=== PATIENT | male | born 1970 | race Caucasian/White ===

== ENCOUNTER → 2018-03-01 | Outpatient (CLI) | payer OTHER | LOC: M.ULTRA 07:55 | DX: R10.9 Unspecified abdominal pain (principal); R63.4 Abnormal weight loss; R19.4 Change in bowel habit ==

== ENCOUNTER → 2018-04-19 | Outpatient (CLI) | payer OTHER | LOC: M.CT 04-10 08:00 | DX: K36 Other appendicitis (principal); R63.0 Anorexia; R63.4 Abnormal weight loss ==

== ENCOUNTER → 2018-05-11 | Day surgery (SDC) | payer OTHER ==
[~2018-05-11] MED LIST: IBUPROFEN 200200 M1 PO; NORCO 5-325 TA1 EACH PO; OMEPRAZOLE40 MG PO
--- NOTE | ~2018-05-11 | OP ---
[address] [address] OPERATIVE REPORT Name: CHAPIS MUNOZ Room: [facility].R.#: [id number] Admission: 05/11/18 Attend Phys: Teresa Page DO Discharge: Date of : 74 Report #: [id number] THIS REPORT FOR: //name// CC: Teresa Diane DATE OF SERVICE: 05/11/2018 PREOPERATIVE DIAGNOSIS: Possible appendiceal mass. POSTOPERATIVE DIAGNOSIS: Possible appendiceal mass. SURGEON: Teresa Page DO. COSURGEON: Vu Boyd DO, PGY2. MANAGER OF [employer] SALES: Vishnu Vasquez DO, PGY3. OPERATION PERFORMED: Laparoscopic appendectomy. ANESTHESIA TYPE: General and local. ESTIMATED BLOOD LOSS: 10 mL. SPECIMEN REMOVED: Appendix. COMPLICATIONS: None. FINDINGS: An indurated thickened appendix, mainly at the tip and distal mid portion. INDICATIONS FOR PROCEDURE: The patient is a pleasant 47-year-old male who presented to the office after a CT scan in 04/19/2018, first showed signs of possible early acute appendicitis, but the patient did not have any other symptoms to suggest early or ongoing appendicitis, suspect likely possible underlying mass. The patient was subsequently booked for elective laparoscopic appendectomy. Full discussion of procedure, alternatives, risks and possible complications to include, but not limited to bleeding, infection, postoperative pain, scarring, hernia, injury to other abdominal organs mainly bladder or bowel, conversion to open procedure, need for further surgery especially in the setting of mass or malignancy on final pathology, staple line failure, stump appendicitis and anesthesia risks. The patient voiced understanding of these risks and agreed to proceed with surgery. OPERATIVE PROCEDURE: The patient was again seen and examined in the preop holding area. Fully informed written consent [place] [address] OPERATIVE REPORT Name: ALEXANDERCHAPIS ESPINALNE Room: [facility].#: [id number] Admission: 05/11/18 Attend Phys: Teresa Page DO Discharge: Date of : 74 Report #: [id number] of procedure, alternatives, risks and possible complications. The patient again voiced understanding and agreed to proceed with surgery. Preoperative antibiotics, 2 grams Ancef were given and the patient was transported to the operating room suite, placed on the operating room table in supine position. At this time, Anesthesia induced general endotracheal intubation and general anesthesia was successful. Bilateral lower extremity calves SCDs were placed. Grounding pad was placed to the left lateral thigh. All the patient's extremities and joints were padded and protected. Left arm was tucked. Right arm was on an arm board. Annamaria Hugger was used over the patient's chest. The patient was then prepped and draped using standard sterile fashion. Time-out was performed prior to the onset of procedure. We began by making a 12 mm incision inferior to the umbilicus using open Kareem technique, dissected down to the level of fascia using blunt electrocautery dissection. Bilateral Kochers were placed on the fascia. The fascia was elevated. This was transected using electrocautery. Next, using a hemostat, peritoneum was pierced and finger sweep was performed to verify entry into the abdomen, noting no adhesions. Next, a 2-0 Vicryl on a UR-6 stay sutures were placed on both sides of the fascia. This was elevated and a 12 mm Kareem trocar was placed into the abdomen. Next, the abdomen was insufflated first using low flow then high flow. A 0-degree 5 mm laparoscopic camera was placed into the abdomen. Abdomen was surveyed noting no injury upon entry into the abdomen. There were no other acute processes noted other than a few adhesions to the distal cecum. Next, a left lower quadrant 5 mm trocar was placed and using laparoscopic Jesus, the appendix was located at the base of the cecum following the convergence of the tinea. Next, an additional 5 mm trocar was placed in the suprapubic region and the appendix was then grasped through this incision with a laparoscopic Jesus, being careful to avoid grabbing the appendix directly. Mesoappendix was grasped, elevated and using a laparoscopic [place] a window was made at the base of the appendix. Next, an Endo-MAEVE 45 purple load was inserted through the umbilical trocar, placed through the prior window made at the appendix base and the appendix was stapled across at its base, being careful not to take cecum, but not leave an appendiceal stump. Next, using additional 45 white load, the mesoappendix was stapled. Intraoperative pictures were obtained. Next, there was noted to be a small pool of coagulated blood. A suction quality control analyst was brought on to the field. This was irrigated out. There was noted to be a mild bleeding at the mesoappendix staple line. This was stopped using an electrocautery of simple buzz and hemostasis was achieved. Insufflation was dropped down to low flow noting again no ongoing hemorrhaging. Next, the appendix was placed into a 10 mm EndoCatch bag through the umbilical trocar. Again, we evaluated the staple lines and obtained intraoperative pictures. Next, the omentum was placed over the top of the cecum and staple lines. Once this was achieved, the abdomen was slowly desufflated under direct visualization and the suprapubic and left lower quadrant trocars were removed noting no ongoing hemorrhaging. The abdomen was then completely desufflated. The laparoscopic camera was removed. Kareem trocar was removed. Next, Kochers were placed back on to both sides of the fascia and a single interrupted [id number]-[id number] 0 Vicryl on a UR-6 [place] [address] OPERATIVE REPORT Name: CHAPIS MUNOZ [facility] [id number] Admission: 05/11/18 Attend Phys: Teresa Page, DO Discharge: Date of : 74 Report #: [id number] close the fascia. This was obviously performed after removal of the appendix through the umbilical incision. Skin was closed using a running 4-0 Monocryl and the additional two 5 mm trocars were closed using interrupted 4-0 Monocryl. Skin was cleansed using saline and wet and dry laps. A 40 mL of 0.5% Marcaine was used for local anesthesia. Mastisol, Steri-Strips, gauze and Tegaderms were placed for sterile dressings. The patient tolerated the procedure well, was extubated in the OR and transferred to PACU in stable condition after a brief recovery from anesthesia. He will be discharged home. Follow up with Dr. Page in the office in 1 week to discuss pathology findings and discuss any possible further treatment needed. By: 1027 Papa Boyd DO /charlette
--- NOTE | 2018-05-15 13:08 | PATH ---
[address] [address] PATHOLOGY RPT PROCEDURE Name: CHAPIS MUNOZ Room: [facility].#: [id number] Admission: 05/11/18 Date of : 74 Discharge: Report #: [id number] Path Case #: [id number] [facility] Accession Number: [id number] . 01 Material submitted: . APPENDIX . 01 Clinical history: . Appendicitis. . 02 Diagnosis: "Appendix", appendectomy: - Appendix with acute appendicitis and lymphoid hyperplasia. (CLW:[facility] 05/12/2018) QTP/05/12/2018 . 02 Electronically signed: . Marisela Leonardo MD, Pathologist NPI- [id number] . 01 Gross description: . Received in formalin labeled "Chapis Munoz, appendix" is an appendectomy specimen measuring 6.5 cm in length and 0.7 cm in diameter. The proximal margin is closed with a staple line. There is an attached portion of mesoappendix measuring 5.8 x 2.7 x 1.3 cm. The serosa is pink-red and hemorrhagic. The specimen is serially sectioned to reveal no perforations or fecaliths and an average luminal diameter of 0.2 cm. Kitchen Cleaner sections of the specimen are submitted in cassette A1, with the proximal margin inked black. ([facility] [place]; 05/11/2018) SYC/SYC . 02 Pathologist provided ICD-10: K35.80 . 02 CPT . 323403 Specimen Comment: A courtesy copy of this report has been sent to Specimen Comment: [phone], . Specimen Comment: Report sent to / DR ENGLE Specimen Comment: A duplicate report has been generated due to demographic updates. Performed at: [address], [place] [id number] MD Ru Cabrera MD Phone: [phone] Performed at: 02 [facility] [address] [place], [place] [id number] [address] [address] PATHOLOGY RPT PROCEDURE Name: CHAPIS MUNOZ Room: [facility]#: [id number] Admission: 05/11/18 Date of : 74 Discharge: Report #: [id number] Path Case #: [id number] MD Robert Spann [place] Phone: [phone]
== END | disposition home or self-care (01) ==
LOC: M.SUR 06:06
DX: K35.890 Other acute appendicitis without perforation or gangrene (principal); K38.0 Hyperplasia of appendix; Z79.899 Other long term (current) drug therapy